=== PATIENT | male | born 1955 | race Caucasian/White ===

== ENCOUNTER 2019-06-21 09:58 | Outpatient (CLI) | payer OTHER, SELFPAY ==
--- NOTE | 2019-06-21 10:00 | US_ITS ---
WS: [id number] RENAL ULTRASOUND REASON FOR EXAM: Renal Calculus TECHNIQUE: Grayscale and Doppler ultrasound examination of the kidneys. FINDINGS: Right kidney: Right kidney measures 12.3 cm x 6.3 cm x 5.6 cm. Small stone is seen in the pelvis Left kidney: Left kidney measures 11.9 cm x 6.2 cm x 7.0 cm.. A stone is not observed on today's exam involving the lower pole Prostate measured 5.37 x 3.72 cm. The bladder is contracted and poorly visualized. US/US renal BI* [id number] IMPRESSION: Small stone is seen in the mid right kidney The kidneys stones seen in the left kidney not observed today Prostatic hyperplasia The bladder is contracted.
== END 2019-06-21 09:59 | disposition home or self-care (01) ==
LOC: RAD 10:01
PROVIDERS: Family Provider Internal Medicine; PCP Internal Medicine; Visit Provider Urology
DX: N20.0 Calculus of kidney (principal); N40.0 Benign prostatic hyperplasia without lower urinary tract symptoms
CPT/HCPCS: 76770; 81001

== ENCOUNTER 2019-12-21 08:33 | Outpatient (CLI) | payer OTHER, SELFPAY ==
--- NOTE | 2019-12-21 08:45 | US_ITS ---
WS: [id number] RENAL ULTRASOUND HISTORY: History of kidney stones. COMPARISON: 06/21/2019 TECHNIQUE: 2-D and color Doppler imaging of the kidney submitted. Right kidney: 11.2 cm x 5.2 cm x 5.4 cm. Normal echogenicity with no hydronephrosis or mass. Left kidney: 12.5 cm x 4.5 cm x 6.7 cm. Normal size and echogenicity. Cortical exophytic cyst from the mid kidney measures 7 x 7 x 8 mm. No s olid mass or obstruction. Aorta: Normal. Urinary Bladder: Normal distention. US/US renal BI* [id number] IMPRESSION: 1. Normal size kidneys with no hydronephrosis. 2. Cortical cyst interpolar LEFT kidney is subcentimeter.
--- NOTE | 2019-12-21 09:30 | XR_ITS ---
WS: [id number] EXAM: ABDOMINAL KUB DATE OF EXAMINATION: 12/21/2019, 0903 hours COMPARISON: Abdominal KUB from 03/17/2019. HISTORY: Patient is 64 years old with follow-up kidney stones. FINDINGS: Bowel gas pattern is normal. No calcifications are seen over either kidney silhouette or course of th e ureters to suggest renal or ureteral calculi. Extensive changes of arthritis are seen in the spine. Slight arthritis in the right SI joint as well. XR/XR KUB 54919 IMPRESSION: No findings of calcifications to suggest renal or ureteral calculi.
== END 2019-12-21 08:34 | disposition home or self-care (01) ==
LOC: RAD 08:33
PROVIDERS: PCP Internal Medicine; Visit Provider Urology
DX: N20.0 Calculus of kidney (principal); N28.1 Cyst of kidney, acquired
CPT/HCPCS: 74018; 76770; 81001

== ENCOUNTER 2020-08-09 14:10 | Outpatient (CLI) | payer MEDICARE, OTHER, SELFPAY ==
--- NOTE | 2020-08-09 07:30 | XR_ITS ---
WS: [id number] KUB, AP view, 08/09/2020 Clinical Data: N20.0 - Calculus of kidney Comparison: KUB, 12/21/2019. Findings: No abnormal intraabdominal masses or calcifications are seen. There is no dilatated small bowel or ev idence of obstruction. There are no abnormal calcifications in the true pelvis. XR/XR KUB [id number] Impression: Negative for renal or ureteral calculi.
== END 2020-08-09 14:11 | disposition home or self-care (01) ==
LOC: RAD 14:19
PROVIDERS: PCP Internal Medicine; Visit Provider Urology
DX: N20.0 Calculus of kidney (principal)
CPT/HCPCS: 74018; 81003

== ENCOUNTER 2021-02-13 08:17 | Outpatient (CLI) | payer MEDICARE, OTHER, SELFPAY ==
--- NOTE | 2021-02-13 08:30 | XR_ITS ---
WS: [id number] XR KUB [id number] REASON FOR EXAM: URIC ACID UROLITHIASIS FINDINGS: No intrarenal calculi, ureteral calculi, or bladder calculi are identified. The remainder of the abdomen is unremarkable. XR/XR KUB 16579 IMPRESSION: No urinary tract calculi identified.
== END 2021-02-13 08:18 | disposition home or self-care (01) ==
LOC: RAD 08:23
PROVIDERS: PCP Internal Medicine; Visit Provider Urology
DX: N20.9 Urinary calculus, unspecified (principal)
CPT/HCPCS: 74018; 81003

== ENCOUNTER 2021-09-11 08:00 | Outpatient (CLI) | payer MEDICARE, OTHER, SELFPAY ==
--- NOTE | 2021-09-11 08:18 | XR_ITS ---
WS: [id number] XR KUB [id number] REASON FOR EXAM: Uric acid urolithiasis FINDINGS: No calculi overlying the kidneys, ureters, or bladder. No other significant abnormality of the abdomen or pelvis. XR/XR KUB [id number] IMPRESSION: No urinary tract calculi identified.
--- NOTE | 2021-09-11 08:45 | US_ITS ---
WS: [id number] RENAL ULTRASOUND HISTORY: URIC ACID UROLITHIASIS COMPARISON: 07/13/2019 TECHNIQUE: 2-D and color Doppler imaging of the kidney submitted. Right kidney: 11.7 cm x 5.6 cm x 5.5 cm. Normal echogenicity with no hydronephrosis or mass. No calcifications or shadowing. Left kidney: 11.5 cm x 3.6 cm x 5.2 cm. Normal size kidney with normal echogenicity. No cortical thinning. Small exophytic cyst from the supe rior kidney measures 9 x 10 x 11 mm. Also described on the prior study with minimal increase in size. No solid mass. No shadowing or calcification. Aorta: Normal. Urinary Bladder: Normally distended bladder. There is encroachment into the base of the bladder by an enlarged prostate gland. Prostate measures 5.0 x 5.0 x 5.9 cm. US/US renal BI* [id number] IMPRESSION: 1. No hydronephrosis or calcifications identified. 2. Very small exophytic cyst upper pole LEFT kidney. No solid mass. 3. Prostate gland enlargement and heterogeneity.
== END 2021-09-11 08:01 | disposition home or self-care (01) ==
LOC: RAD 08:13
PROVIDERS: PCP Internal Medicine; Visit Provider Urology
DX: N20.0 Calculus of kidney (principal); N28.1 Cyst of kidney, acquired; N40.0 Benign prostatic hyperplasia without lower urinary tract symptoms; N20.9 Urinary calculus, unspecified; R82.992 Hyperoxaluria
CPT/HCPCS: 74018; 76770; 81003; 99213

== ENCOUNTER → 2021-09-28 10:32 | Outpatient (BNVA) | payer MEDICARE, OTHER, SELFPAY | PROVIDERS: PCP Internal Medicine; Visit Provider Urology | DX: N20.9 Urinary calculus, unspecified (principal) | CPT/HCPCS: 80048 ==

== ENCOUNTER → 2024-10-07 08:37 | Outpatient (BNVA) | payer MEDICARE, SELFPAY | PROVIDERS: PCP Nurse Practitioner Family; Visit Provider Nurse Practitioner Family | DX: R82.992 Hyperoxaluria (principal); I10 Essential (primary) hypertension; R73.9 Hyperglycemia, unspecified; H61.91 Disorder of right external ear, unspecified | CPT/HCPCS: 80053; 80061; 83036; 84443; 85025 ==

== ENCOUNTER → 2024-10-21 08:17 | Outpatient (BNVA) | payer MEDICARE, SELFPAY | PROVIDERS: PCP Nurse Practitioner Family; Visit Provider Nurse Practitioner Family | DX: I10 Essential (primary) hypertension (principal); E87.5 Hyperkalemia | CPT/HCPCS: 80048 ==

== ENCOUNTER → 2024-10-25 11:11 | Outpatient (BNVA) | payer MEDICARE, SELFPAY | PROVIDERS: PCP Nurse Practitioner Family; Visit Provider Nurse Practitioner Family | DX: M17.12 Unilateral primary osteoarthritis, left knee (principal) | CPT/HCPCS: 73562 ==

== ENCOUNTER 2024-11-10 08:03 | Outpatient (CLI) | payer MEDICARE, SELFPAY ==
--- NOTE | 2024-11-10 08:45 | MR_ITS ---
WS: [id number] MRI LEFT KNEE NONCONTRAST TECHNIQUE: Axial PD, coronal PD fat sat, coronal PD, sagittal PD, and sagittal PD fat-sat images obtained. CLINICAL INFORMATION: M25.562 - Pain in left knee FINDINGS: Advanced tricompartmental arthritis LEFT knee. This is worse in the medial joint compartment. Hypertrophic changes along the joint line. Hypertrophic patella with enthesophytes. Distal quadriceps and patella tendons are intact. ACL and PCL are intact. Small suprapatellar effusion. Grade IV chondromalacia patella with chondral fissuring and trace subchondral edema. Prepatellar soft tissue edema with a small amount of fluid. Medial and lateral patellar retinaculum appear intact. Normal popliteal fossa. Medial and lateral collateral ligaments are intact. Chronic thinning of the medial and lateral meniscus. Chronic desiccation of the medial meniscus with near [id number] articulation in the medial joint compartment. Peripheral extrusion of the residual meniscus. Normal popliteal fossa. MR/MR knee LT wo con* [id number] IMPRESSION: 1. Advanced tricompartmental arthritis worse in the medial joint compartment w ith [id number] articulation and a small amount of subchondral edema in the ti bial plateau. Hypertrophic changes about the joint line. 2. Grade IV chondromalacia patella with a small amount of subchondral edema an d chondral fissuring along the mid patella extending into the lateral patellar facet. Prepatellar soft tissue edema with a small joint effusion. 3. ACL and PCL appear intact. 4. Medial and lateral collateral ligaments are intact. 5. No acute appearing meniscal tears. Chronic desiccation and peripheral extru abi of the residual medial meniscus. 6. Calcified intra-articular loose bodies along the anterior tibial spines jus t anterior to the ACL. Outbridge grading: grade IV: full-thickness cartilage loss with underlying bone reactive changes
== END 2024-11-10 08:04 | disposition home or self-care (01) ==
LOC: RAD 08:04
PROVIDERS: PCP Nurse Practitioner Family; Visit Provider Nurse Practitioner Family
DX: M17.12 Unilateral primary osteoarthritis, left knee (principal); M22.42 Chondromalacia patellae, left knee; M23.42 Loose body in knee, left knee
CPT/HCPCS: 73721

== ENCOUNTER → 2024-11-17 13:25 | Outpatient (BNVA) | payer MEDICARE, SELFPAY | PROVIDERS: PCP Nurse Practitioner Family; Visit Provider Nurse Practitioner Family | DX: L81.4 Other melanin hyperpigmentation (principal); L57.8 Other skin changes due to chronic exposure to nonionizing radiation; X32.XXXA Exposure to sunlight, initial encounter; L57.3 Poikiloderma of Civatte; L82.0 Inflamed seborrheic keratosis; L29.89 Other pruritus; R20.9 Unspecified disturbances of skin sensation; R23.8 Other skin changes; R20.8 Other disturbances of skin sensation; L53.8 Other specified erythematous conditions; D48.5 Neoplasm of uncertain behavior of skin | CPT/HCPCS: 17110; 69100; 99203 ==

== ENCOUNTER 2025-02-07 23:54 | Emergency (ER) | payer MEDICARE, SELFPAY ==
[2025-02-07 23:54] VITALS: BP 218/103; PULSE 72; RESP 12; TEMP 36.4; O2SAT 97; BMI 35.2
--- NOTE | 2025-02-07 23:59 | CTR_ITS ---
PROCEDURE INFORMATION: Exam: CT Head Without Contrast Exam date and time: 02/07/2025 11:59 PM Age: 69 years old Clinical indication: Stroke-like symptoms; Visual disturbance; Left upper extremity and left lower extremity numbness/paresthesia; Additional info: Symptoms of acute stroke TECHNIQUE: Imaging protocol: Computed tomography of the head without contrast. Radiation optimization: All CT scans at this facility use at least one of these dose optimization techniques: automated exposure control; mA and/or kV adjustment per patient size (includes targeted exams where dose is matched to clinical indication); or iterative reconstruction. Other technique: STROKE PROTOCOL was implemented. COMPARISON: No relevant prior studies available. RADIATION DOSE METRICS: Total DLP (mGy-cm): 1419.28 FINDINGS: Brain: Query mild chronic small-vessel ischemic change. Cerebral ventricles: Mild involutional changes of the ventricles and sulci. Paranasal sinuses: Bilateral maxillary and sphenoid sinus mucosal thickening. Mastoid air cells: Visualized mastoid air cells are well aerated. Bones: Unremarkable. No acute fracture. Soft tissues: Unremarkable. CT/CT head thrombolytic [id number] IMPRESSION: No definite acute infarct ASSESSMENT: ASPECTS ([place] Stroke Program Early CT Score) is 10.
--- NOTE | 2025-02-07 23:59 | ECG_ITS ---
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 Measurements Intervals [place] Rate: 70 P: 56 NM: 233 QRS: 55 QRSD: 86 T: 38 QT: 374 QTc: 405 Interpretive Statements SINUS RHYTHM WITH FIRST DEGREE AV BLOCK Possible left atrial enlargement Compared to ECG 05/07/2018 11:35:59 No significant changes Electronically Signed On 02-08-2025 23:50:55 CDT by Kd Huynh M.D. [email or web address]
--- NOTE | 2025-02-07 23:59 | CTR_ITS ---
PROCEDURE INFORMATION: Exam: CTA Head With Contrast, Arteriography Exam date and time: 02/08/2025 12:06 AM Age: 69 years old Clinical indication: Dizziness and giddiness and headache and numbness; Additional info: L arm numbness, dizziness, headache, resolved TECHNIQUE: Imaging protocol: Computed tomographic angiography of the head with contrast. Exam focused on the arteries. 3D rendering (Not supervised by radiologist): MIP and/or 3D reconstructed images were created by the technologist. Radiation optimization: All CT scans at this facility use at least one of these dose optimization techniques: automated exposure control; mA and/or kV adjustment per patient size (includes targeted exams where dose is matched to clinical indication); or iterative reconstruction. Contrast material: OMNI 350; Contrast volume: 100 ml; Contrast route: INTRAVENOUS (IV); COMPARISON: CT head thrombolytic [id number] 02/07/2025 11:59 PM RADIATION DOSE METRICS: Total DLP (mGy-cm): 567.34 FINDINGS: ANTERIOR CIRCULATION: Right internal carotid artery: Intracranial segment is patent with no significant stenosis. No aneurysm. Right middle cerebral artery: No occlusion or significant stenosis. No aneurysm. Right anterior cerebral artery: No occlusion or significant stenosis. No aneurysm. Left internal carotid artery: Intracranial segment is patent with no significant stenosis. No aneurysm. Left middle cerebral artery: No occlusion or significant stenosis. No aneurysm. Left anterior cerebral artery: No occlusion or significant stenosis. No aneurysm. POSTERIOR CIRCULATION: Right vertebral artery: No occlusion or significant stenosis. No aneurysm. Left vertebral artery: No occlusion or significant stenosis. No aneurysm. Basilar artery: No occlusion or significant stenosis. No aneurysm. Right posterior cerebral artery: Short-segment moderate to high-grade stenosis of the mid right FIELD UNDERWRITER, though distal aspects appear to opacify symmetrically. Left posterior cerebral artery: No occlusion or significant stenosis. No aneurysm. Aorta: Aortic and carotid atherosclerosis. Brain: No definite mass, mass effect, or midline shift. Cerebral ventricles: No ventriculomegaly. Paranasal sinuses: Polypoid mucosal thickening of the left maxillary sinus. Mild right maxillary sinus thickening. Osteomas of the bilateral ethmoid air cells. Mild ethmoid sinus disease. Bones/joints: Unremarkable. No acute fracture. Soft tissues: Unremarkable. Thyroid: Several nodules within the thyroid, consider nonurgent thyroid ultrasound for further characterization. Granulomatous calcification within the right lung. PROCEDURE INFORMATION: Exam: CTA Neck With Contrast Exam date and time: 02/08/2025 12:06 AM Age: 69 years old Clinical indication: Dizziness and giddiness and headache and numbness; Additional info: L arm numbness, dizziness, headache, resolved TECHNIQUE: Imaging protocol: Computed tomographic angiography of the neck with contrast. Exam focused on the cervical segments of the vasculature. 3D rendering (Not supervised by radiologist): MIP and/or 3D reconstructed images were created by the technologist. Radiation optimization: All CT scans at this facility use at least one of these dose optimization techniques: automated exposure control; mA and/or kV adjustment per patient size (includes targeted exams where dose is matched to clinical indication); or iterative reconstruction. Contrast material: OMNI 350; Contrast volume: 100 ml; Contrast route: INTRAVENOUS (IV); COMPARISON: CT head thrombolytic [id number] 02/07/2025 11:59 PM RADIATION DOSE METRICS: Total DLP (mGy-cm): 567.34 FINDINGS: Right common carotid artery: No stenosis. No dissection or occlusion. Right internal carotid artery: No stenosis of the extracranial segment. No dissection or occlusion. Right external carotid artery: No occlusion or stenosis of the origin. Left common carotid artery: No stenosis. No dissection or occlusion. Left internal carotid artery: No stenosis of the extracranial segment. No dissection or occlusion. Left external carotid artery: No occlusion or stenosis of the origin. Right vertebral artery: No stenosis. No dissection or occlusion. Left vertebral artery: No stenosis. No dissection or occlusion. Thyroid: Several nodules within the thyroid, consider nonurgent thyroid ultrasound for further characterization. Soft tissues: Normal. No significant soft tissue swelling. Bones/joints: Incidental note of kinking/looping of both internal carotids close to the skull base, doubtful clinical significance. Moderate degenerative changes of cervical vertebrae with multilevel endplate spurring and disc space narrowing. CT/CT angio headneck* [id number] IMPRESSION: 1. Several nodules within the thyroid, consider nonurgent thyroid ultrasound for further characterization. 2. Short-segment moderate to high-grade stenosis of the mid right FIELD UNDERWRITER, though distal aspects appear to opacify symmetrically. Otherwise, no significant stenosis or occlusion. IMPRESSION: Several nodules within the thyroid, consider nonurgent thyroid ultrasound for further characterization. No definite acute stenosis or occlusion. COMMENTS: Consistent with the [employer]'s Incidental Findings Committee white paper (J Am Iris Radiol 2015): In patients aged 35 years and older with an incidental thyroid nodule equal to or greater than 1.[address], MRI or extrathyroidal US, further evaluation with dedicated thyroid US is recommended for patients with normal life expectancy and without comorbidities. For smaller nodules without suspicious features, no further evaluation or follow up is recommended. REFERENCES: NASCET CRITERIA. The degree of stenosis in the cervical segment of the internal carotid artery is based on NASCET criteria. Normal is no stenosis. Mild is less than 50% stenosis. Moderate is 50-69% stenosis. Severe is 70% to 99% stenosis. Total occlusion is no detectable patent lumen.
--- OUTSIDE RECORDS SUMMARY | 2025-02-08 00:02 | XMS_ITS | Patient Health Record ---
Author Organization [employer], [facility] Address [address] [place] [address] Care Team Providers Care Clerical Receptionist Name Role Phone Trini Dorantes Primary Care Provider BROOK Noriega Unavailable [phone] HAGERCUONG KESSLER Unavailable [phone] Allergies No Known Allergies Results Component Value Reference Range Notes Basic Metabolic Panel Reviewed date:07/29/2024 12:01:25 PM Interpretation: Performing Lab: Notes/Report: Use of this assay is not recommended for patients undergoing treatment with phenindione, due to the potential for falsely depressed results. Testing performed at: [address] [place] [address] CLIA ID [id number] Calculation performed from GFR calculator provided by the [employer]. Glomerular Filtration rate(GRF) is the best overall index of kidney function. Normal GFR varies according to age,sex, body size, and declines with age. The National [employer] recommends using the CKD-EPI Creatinine Equation(2020) to estimate GFR. Z-hobtda-n-benzoquinone imine (NAPQI) is a metabolite of acetaminophen, NAPQI concentrations of apparoximately 10 mg/L correlation to toxic levels of acetaminophen demonstrates a greater than or equil to 10% change in results. NAPQI concentrations greater than this may lead to falsely depressed results for patient samples. Testing performed at [facility], [address] [place] [address] [place] [address]. CLIA ID#: [id number] Sodium 137 136-145 MMOL/L Potassium 4.2 3.5-5.1 MMOL/L Chloride 102 98-107 MMOL/L CO2 25.8 20.0-31.0 MMOL/L Glucose Serum 183 71-110 MG/DL BUN 24 7-21 MG/DL Creat 1.26 .57-1.17 MG/DL GFR 61.8 Anion Gap 13 5-15 BUN/Creat Ratio 19.0 12.0-20.0 % Calcium 9.8 8.7-10.4 MG/DL Osmo Serum,Calculated 293 280-300 MOSM/KG CBC w/ Auto Diff Reviewed date:07/29/2024 12:01:31 PM Interpretation: Performing Lab: Notes/Report: Testing performed at: [address], [place] [address] CLIA ID [id number] WBC 7.4 4.5-11.0 X10'3 RBC 5.32 4.50-5.90 X10'6 Hgb 15.2 13.5-17.5 G/DL Hct 46.8 41.0-53.0 % MCV 88.0 80.0-100.0 FL MCH 28.6 27.0-31.0 PG MCHC 32.5 31.0-37.0 G/DL Platelet 241 150-400 X10'3 RDW-SD 43.9 35.0-49.0 FL RDW-CV 13.4 12.2-15.6 % MPV 9.3 9.2-12.0 FL Neutro Auto% 65.1 40.0-70.0 % Lymph Auto% 19.8 22.0-44.0 % Grainger Auto% 6.9 3.0-7.0 % Eos Auto% 6.6 2.0-4.0 % Baso Auto% 1.2 0.0-1.0 % Imm Gran% .4 .0-.4 % Neutro Abs 4.85 .80-7.70 Absolute Neutrophil Count 4850 Lymph Abs 1.47 .10-4.10 Grainger Abs .51 .20-1.00 Eos Abs .49 .00-.40 Baso Abs .09 .00-.20 Imm Gran Abs .03 .00-.10 NRBC# .00 .00-.20 NRBC% .00 .00-.20 /100 int act WBC's Urinalysis, Routine Reviewed date:07/29/2024 09:00:19 AM Interpretation: Performing Lab: Notes/Report: Urine-Color yellow Appearance clear Glucose - Bilirubin - Ketones - Specific [place] 1.025 Occult Blood - pH 6.0 Urine Protein 2+ Urobilinogen,Semi-Qn - Nitrite, Urine - WBC Esterase - CULTURE, URINE, ROUTINE (395 ) Reviewed date:08/02/2024 08:32:35 AM Interpretation: Performing Lab:[facility]-[id number] Ferny oswaldo, [id number] Yoly Soler MD Notes/Report: NON-FASTING CULTURE, URINE, ROUTINE SEE NOTE CULTURE, URINE, ROUTINE Micro Number: [id number] Test Status: Final Specimen Source: Not given Specimen Quality: Adequate Result: Mixed genital jermain isolated. These superficial bacteria are not indicative of a urinary tract infection. No further organism identification is warranted on this specimen. If clinically indicated, recollect clean-catch, mid-stream urine and transfer immediately to Urine Culture Transport Tube. NO COLLECTION DATE RECEIVED. WE HAVE USED THE DATE THE SPECIMEN WAS RECEIVED BY THIS LABORATORY THE COLLECTION DATE. IF THIS IS INCORRECT, PLEASE CONTACT CLIENT SERVICES. PHONE NUMBER: [phone] Rectal Swab Resistance Panel PCR Reviewed date:07/30/2024 12:19:18 PM Interpretation: Performing Lab: Notes/Report: Urinalysis, Routine Reviewed date:05/24/2024 01:28:53 PM Interpretation: Performing Lab: Notes/Report: Urine-Color yellow Appearance clear Glucose - Bilirubin - Ketones - Specific [place] 1.015 Occult Blood - pH 6.0 Urine Protein 2+ Urobilinogen,Semi-Qn - Nitrite, Urine - WBC Esterase - MRI Pelvis w/ + w/o Cont--72 197 Reviewed date:06/14/2024 10:41:49 AM Interpretation: Performing Lab: Notes/Report: See Below For Report MRI Pelvis w/ + w/o Cont Read See Below For Report Reason For Referral No Information Medications Medication SIG (Take, Route, Frequency, Duration) Notes Start Date End Date Status diazePAM 5 MG 1 tablet as needed Orally one hour prior to MRI; Duration: 1 days MUST HAVE [employer]ARM [employer]YER to drive home from exam 06/01/2024 Not-Taking Losartan Potassium 100 MG 1 tablet Orall y Once a day Active Multivitamin Active Symbicort 160-4.5 MCG/ACT as directed Inhalation Active Aspirin Adult Low Dose 81 MG 1 tablet Orally Once a day Active Sertraline HCl 25 MG 1 tablet Orally Onc e a day Active Potassium Citrate ER 15 MEQ (1620 MG) 1 tablet with meals Orally Twice a day Active Ezetimibe 10 MG 1 tablet Orally Once a day Active Social History Tobacco Use: Social History Observation Description Date Details (start date - stop date) Never Smoker NA - NA Tobacco Control (Standard) Question Answer Notes Tobacco use: Nonsmoker AUDIT-C (Standard) Question Answer Notes Did you have a drink containing alcohol in the p ast year? No Points 0 Interpretation Negative Section Notes: Denies any tobacco or alcoho l use. Denies any tobacco or alcoho l use. Denies any tobacco or alcoho l use. Denies any tobacco or alcoho l use. Denies any tobacco or alcoho l use. Problems Problem Type SNOMED Code ICD Code Onset Dates Problem Status W/U Status Risk Notes Problem Nephrolithiasis (18723843) Nephrolithiasis (N20.0) Active confirmed Problem History of psychiatric disorder (372400082) History of claustrophobia (Z86.59) Active confirmed Problem Recurrent nephrolithiasis (3579568661314631) Recurrent nephrolithiasis (N20.0) Active confirmed Vital Signs Heart Rate 77 /min 10/27/2024 Height-cm 182.88 cm 10/27/2024 Blood pressure diastolic 97 mm Hg 10/27/2024 Weight-kg 122.47 kg 10/27/2024 Height 72 in 10/27/2024 Blood pressure systolic 155 mm Hg 10/27/2024 Weight 270 lbs 10/27/2024 BMI 36.61 kg/m2 10/27/2024 Procedures Procedure Date Ordered Date Performed Result Body Sit e Bladder Scan 05/24/2024 05/24/2024 PVR 0ml Encounters Encounter Location Date Provider Diagnosis [employer], [employer] [address] [place] [address] 05/24/2024 BROOK MEJÍA Elevated PSA R97.20 and Recurrent nephrolithiasis N20.0 [employer], [facility] [address] [place] [address] 06/15/2024 BROOK MEJÍA Elevated PSA R97.20 and Abnormal MRI, pelvis R93.5 [employer] [facility] [address] [facility] [address] [place] [address] 07/29/2024 BROOK MEJÍA Encounter for preoperative assessment Z01.818 ; Elevated PSA R97.20 ; Abnormal MRI, pelvis R93.5 and 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 [facility], [facility] [address] [place] [address] 08/03/2024 CUONG HAGER [facility], [facility] [address] [place] [address] 08/24/2024 CUONG HAGER Elevated PSA R97.20 ; Abnormal MRI, pelvis R93.5 and 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 [facility], [facility] [address] [place] [address] 10/27/2024 CUONG HAGER Elevated PSA R97.20 ; Abnormal MRI, pelvis R93.5 ; 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 and Nephrolithiasis N20.0 [facility], [facility] [address] [place] [address] 05/13/2024 CUONG HAGER [facility], [facility] [address] [place] [address] 05/31/2024 BROOK MEJÍA Elevated PSA R97.20 and History of claustrophobia Z86.59 [facility], [facility] [address] [place] [address] 07/01/2024 BROOK VERGARAS [facility], [facility] [address] [place] [address] 07/19/2024 BROOKSABI VALENCIAKYM Recurrent nephrolithiasis N20.0 and Preoperative clearance Z01.818 Assessments Encounter Date Diagnosis (ICD Code) Assessment Notes Treatment Notes Treatment Clinical Notes Section Notes 10/27/2024 Abnormal MRI, pelvis (ICD-10 - R93.5) He now has a confirm MDX that did not show any DNA methylation making the likelihood of finding significant cancer and a repeat biopsy low and repeat biopsy not indicated. He also has a history of nephrolithiasi s but no recent flank pain or hematuria. His twice daily potassium citrate has been cut down by PCP because of elevated potassium. He will continue aggressive hydration and return in 6 months with a KUB and repeat PSA. We will need to continue to manage, evaluate, and re-assess treatment plan to meet therapy goals of this patient's multiple urologic concerns. 10/27/2024 Elevated PSA (ICD-10 - R97.20) He now has a confirm MDX that did not show any DNA methylation making the likelihood of finding significant cancer and a repeat biopsy low and repeat biopsy not indicated. He also has a history of nephrolithiasi s but no recent flank pain or hematuria. His twice daily potassium citrate has been cut down by PCP because of elevated potassium. He will continue aggressive hydration and return in 6 months with a KUB and repeat PSA. We will need to continue to manage, evaluate, and re-assess treatment plan to meet therapy goals of this patient's multiple urologic concerns. 08/24/2024 Abnormal MRI, pelvis (ICD-10 - R93.5) He has recovered nicely from his biopsy without hematuria or LUTS. He had essentially 90 g prostate on ultrasound and MRI sizing and currently denies significant LUTS. He had 2 areas of atypia and I have recommended confirm MDX for this and return in 2 months to review. He is relieved that there is no definitive evidence of malignancy but understands the need for continued surveillance and possible 5 JULIET therapy in the future for the size of his prostate. 08/24/2024 Elevated PSA (ICD-10 - R97.20) Underwent MRI fusion biopsy on 08/03/24 Normal MILA; 95/88g prostate. Pathology resulting in 2 ANH cores Will obtain confirm MDX. He will return in 2m to review confirm MDX report He has recovered nicely from his biopsy without hematuria or LUTS. He had essentially 90 g prostate on ultrasound and MRI sizing and currently denies significant LUTS. He had 2 areas of atypia and I have recommended confirm MDX for this and return in 2 months to review. He is relieved that there is no definitive evidence of malignancy but understands the need for continued surveillance and possible 5 JULIET therapy in the future for the size of his prostate. 07/19/2024 Recurrent nephrolithiasis (ICD-10 - N20.0) 06/15/2024 Abnormal MRI, pelvis (ICD-10 - R93.5) ab 06/15/2024 Elevated PSA (ICD-10 - R97.20) Pt with elevated PSA and equivocal MRI of the prostate with PIRADS 3 lesion. He understands equivocal findings. We discussed options for biopsy versus 4K score for further risk stratification. He understands possibility of missing malignancy if biopsy is not performed. He would like 4K score and will make biopsy decision based on results. Will call when received. ab 05/31/2024 History of claustrophobia (ICD-10 - Z86.59) 05/31/2024 Elevated PSA (ICD-10 - R97.20) 05/24/2024 Recurrent nephrolithiasis (ICD-10 - N20.0) Pt with h/o recurrent uric acid stones on prevention regimen from Dr. Crawford. He is asymptomatic. He has not had any surveillance imaging in a while. We will address after elevated PSA work up. 05/24/2024 Elevated PSA (ICD-10 - R97.20) Pt with elevated PSA of 5.5 in 2021 that is now up to 9.56. We discussed the controversies surrounding PSA screening as well as the implications of an elevated PSA and indications for a an MRI of the prostate to evaluate for any suspicous lesions and possible need for transrectal ultrasound-guided biopsy of the prostate. He understands the possibility of missing a malignancy if a MRI/ biopsy of the prostate is not performed. He is agreeable. We will obtain an MRI of the prostate and he will f/u after for review. 07/29/2024 Encounter for preoperative assessment (ICD-10 - Z01.818) 07/29/2024 Elevated PSA (ICD-10 - R97.20) Pt with elevated PSA and equivocal MRI of the prostate with PIRADS 3 lesion but very elevated 4K score of 95. Recommended proceeding with MRI fusion biopsy. Patient scheduled for biopsy on 08/03/24 at [facility] with Dr. Hgaer. How the procedure was performed was discussed along with risks/benefits/al ternatives and postprocedural expectations. Denies problems with anesthesia in the past, no new medications or diagnoses since last visit. He has been insructed to hold ASA starting today. Patient has presurgical testing today at [place]. Urine sent for culture as well we rectal PCR and we will treat as indicated preoperatively. All questions that were asked were answered and elects to proceed with procedure as scheduled. Patient will RTC postoperatively and is satisfied with plan of care. 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 He also has a history of nephrolithiasi s but no recent flank pain or hematuria. His twice daily potassium citrate has been cut down by PCP because of elevated potassium. He will continue aggressive hydration and return in 6 months with a KUB and repeat PSA. We will need to continue to manage, evaluate, and re-assess treatment plan to meet therapy goals of this patient's multiple urologic concerns. 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 He had essentially 90 g prostate on ultrasound and MRI sizing and currently denies significant LUTS. He had 2 areas of atypia and I have recommended confirm MDX for this and return in 2 months to review. He is relieved that there is no definitive evidence of malignancy but understands the need for continued surveillance and possible 5 JULIET therapy in the future for the size of his prostate. 10/27/2024 Nephrolithiasis (ICD-10 - N20.0) He now has a confirm MDX that did not show any DNA methylation making the likelihood of finding significant cancer and a repeat biopsy low and repeat biopsy not indicated. He also has a history of nephrolithiasi s but no recent flank pain or hematuria. His twice daily potassium citrate has been cut down by PCP because of elevated potassium. He will continue aggressive hydration and return in 6 months with a KUB and repeat PSA. We will need to continue to manage, evaluate, and re-assess treatment plan to meet therapy goals of this patient's multiple urologic concerns. 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 Hager. I, Dr. Cuong Hager, personally performed the services prescribed in this documentation, as scribed by Ada Herrera, in my presence, and it is both accurate and complete. He has recovered nicely from his biopsy without hematuria or LUTS. He had essentially 90 g prostate on ultrasound and MRI sizing and currently denies significant LUTS. He had 2 areas of atypia and I have recommended confirm MDX for this and return in 2 months to review. He is relieved that there is no definitive evidence of malignancy but understands the need for continued surveillance and possible 5 JULIET therapy in the future for the size of his prostate. Plan Of Treatment Pending Test Test Name Order Date MRI : Pelvis with and without Contrast 7 219605/24/2024 Basic Metabolic Panel 07/19/2024 Blood Urea Nitrogen (BUN) 05/24/2024 CBC w/ Auto Diff 07/19/2024 Creatinine Serum 05/24/2024 Culture Urine Reflex 07/19/2024 Electrocardiogram, 12 Lead Tracing-[id number] 07/19/2024 Next Appt Details Provider Name:CUONG Mckenna, 04/26/2025 11:00:00 AM, [address] [place], [address], Insurance Providers Payer Name Payer Address Payer Phone Subscriber Number Group Number Insured Name Patient Relationship to Insured Coverage Start Date Coverage End Date [place] [address] LINCOLN GUERRERO [id number] Asad Gore Self - patient is the insured Medical (General) History Medical History History ICD Code Elevated PSA anxiety high cholesterol high blood pressure Surgical History Surgery Date(Month/Year) ESWL tonsillectomy
--- OUTSIDE RECORDS SUMMARY | 2025-02-08 00:02 | XMS_ITS | Data Portability ---
Author Organization [facility] Dayana Corrales [facility] Address [address] [address] Assessment No assessment recorded. Plan of Treatment Reminders Order Date Submit Date Provider Last Modified By Organization Details Last Modified Time Details Appointments None recorded. Lab PSA, serum or plasma 2023 024 [facility], [address] , [address], [place], [address], 4 05:13:16 CMP, serum or plasma 2023 024 [facility], [address] [facility], [facility] 1, [place], [address], 4 13:34:32 lipid panel, blood 2023 024 [facility], [address] [facility], [facility] 1, [place], [address], 4 13:34:30 CBC 2023 024 [facility], [address] [facility], [facility] 1, [place], [address], 4 13:03:06 hemoglobin A1C/hemoglo bin total, QN, blood 2023 024 [facility], [address] [facility], [facility] 1, [place], [address], 4 13:55:17 thyrotropin , QN, serum or plasma 2023 024 [facility], [address], [address], [place], [address], 4 13:28:33 HbA1c (hemoglobin A1c), blood 2023 024 [facility] ([facility]), [address] [place], [address], 4 10:49:13 BMP, serum or plasma 2023 024 [facility], [address], [address], [place], [address], 4 11:24:49 HbA1c (hemoglobin A1c), blood 2022 023 [facility] ([facility]), [address] [place], [address], 3 11:19:51 CMP, serum or plasma 2022 023 [facility], [address], [address], [place], [address], 3 06:43:14 lipid panel, blood 2022 023 [facility], [address], [address], [place], [address], 3 10:58:21 CBC 2022 023 [facility], [address], [address], [place], [address], 3 08:41:02 PSA, serum or plasma 2022 023 [email or web address] [facility], [address] [facility], [facility] [address], [address], 3 12:34:32 HbA1c (hemoglobin A1c), blood 2022 023 [facility], [address] [place] [address] [address], [address], [place], [address], 3 08:32:05 CMP, serum or plasma 2022 023 [facility], [address] [place] [address], [address], [place], [address], 3 08:32:05 TSH, serum or plasma 2022 023 [facility] ([facility]), [address] [place], [address], 3 11:30:54 lipid panel, blood 2022 023 [facility], [address] [place] [address], [address], [place], [address], 3 05:01:56 CBC 2022 023 [facility] ([facility]), [address] [place], [address], 3 10:47:05 Referral orthopedic surgeon referral 2023 024 kala Montano MD, [address] [place] [address], [address], 5 09:38:16 Procedures None recorded. Surgeries None recorded. Imaging None recorded. Medication Orders None recorded. Patient TargetsNo targets recorded. Patient Instructions Encounter Date Encounter Id Patient Instructions Last Modified By Organization Details Last Modified Time 10/07/2022 [id number] bp controlled; headed to [place] soon for shooting [email or web address] Not available 10/07/2022 10:19:23 04/07/2023 [id number] doing well excep t tooth; waiting on appt for dentist labs today a1c better last time Not available 04/07/2023 09:48:17 10/08/2023 [id number] weight down, a1c improved, but not at goal he can continue to improve diet about to leave for [place] [email or web address] Not available 10/08/2023 09:42:23 04/26/2024 [id number] labs today left shoulder been bothering him for 8 months; wishes to see Dr. montano unsure who he will switch to [email or web address] Not available 04/26/2024 12:39:01 Reason for Referral Orthopedic Surgeon Referral for Pain of left shoulder joint Referring Physician: Bebo Sharma, Internal Medicine, Encounter Date: 04/26/2024 Results Created Date Observation Date Name Description Value Unit Range Abnormal Flag Note LastModifiedBy Organization Detail LastModifiedTime 10/08/1910/08/2022 LIPID PANEL , STAND NICANOR cholesterol, total 179 mg/dL <200 normal Not Available [facility] [address] [address] [place], [address], 10/08/2022 08:32:04 10/08/1910/08/2022 LIPID PANEL , STAND NICANOR HDL cholesterol 53 mg/dL > or = 40 normal Not Available [facility] [address] [place], [address], 10/08/2022 08:32:04 10/08/1910/08/2022 LIPID PANEL , STAND NICANOR triglyceride s 101 mg/dL <150 normal Not Available [facility] [address] [place], [address], 10/08/2022 08:32:04 10/08/1910/08/2022 LIPID PANEL , STAND NICANOR LDL-choleste rol 107 mg/dL _(rashawn c) high Refer ence range : <100 Kiel able range <100 mg/dL for prima ry preve ntion ; <70 mg/dL for patie nts with CHD or diabe tic patie nts with > or = 2 CHD risk facto rs. LDL-C is now calcu lated using the Candy n-[facility] kins mary sue, which is a valid ated novel metho aleksey seymouri favian caro r accur acy than the Fried bart equat ion in the estim ation of LDL-C . Candy sue SS et al. BRDA. 2013; 310(1 9): 2061- 2068 (http ://ed ucati on.Qu estDi Callida Energys. com/f aq/FA Q164) Not Available [facility] [address] [address] [place], [address], 10/08/2022 08:32:04 10/08/19 23 10/08/2022 LIPID PANEL , STAND NICANOR chol/HDLC ratio 3.4 (calc ) <5.0 normal Not Available [facility] [address] [address] [place], [address], 10/08/2022 08:32:04 10/08/19 23 10/08/2022 LIPID PANEL , STAND NICANOR non HDL cholesterol 126 mg/dL _(rashawn c) <130 normal For patie nts with diabe leena plus 1 major ASCVD risk facto r, treat ing to a non-H DL-C goal of <100 mg/dL (LDL- C of <70 mg/dL ) is consi dered a thera peisa c optio n. Not Available [facility] [address] [address] , [place], [address], 10/08/2022 08:32:04 10/08/19 23 10/08/2022 COMPR EHENS YINA METAB OLIC PANEL glucose 156 mg/dL 65-99 high Fasti ng refer ence inter juan For someo ne witho ut known diabe leena, a gluco se value >125 mg/dL indic ates that they may have diabe leena and this shoul d be confi rmed with a follo w-up test. Not Available [facility] [address] [address] [place], [address], 10/08/2022 08:32:05 10/08/19 23 10/08/2022 COMPR EHENS YINA METAB OLIC PANEL urea nitrogen (BUN) 27 mg/dL 7-25 high Not Available [address], [address], 10/08/2022 08:32:05 10/08/19 23 10/08/2022 COMPR EHENS YINA METAB OLIC PANEL creatinine 1.38 mg/dL 0.70-1 .35 high Not Available [address], [address], 10/08/2022 08:32:05 10/08/19 23 10/08/2022 COMPR EHENS YINA METAB OLIC PANEL eGFR 56 mL/mi n/1.7 3m2 > or = 60 low The eGFR is based on the CKD-E PI 2020 equat ion. To calcu late the new eGFR from a previ ous Creat inine or Cysta tin C resul t, go to https ://sofia bethea.priyanka vasquez.o ayo/avis coughlin s/ kdoqi /gfr% 5Fcal culat or Not Available [address], [address], 10/08/2022 08:32:05 10/08/19 23 10/08/2022 COMPR EHENS YIAN METAB OLIC PANEL BUN/creatini ne ratio 20 (calc ) 6-22 normal Not Available [address], [address], 10/08/2022 08:32:05 10/08/19 23 10/08/2022 COMPR EHENS YINA METAB OLIC PANEL sodium 141 mmol/ L 135-14 6 normal Not Available [address], [address], 10/08/2022 08:32:05 10/08/19 23 10/08/2022 COMPR EHENS YINA METAB OLIC PANEL potassium 4.7 mmol/ L 3.5-5. 3 normal Not Available [address], [address], 10/08/2022 08:32:05 10/08/19 23 10/08/2022 COMPR EHENS YINA METAB OLIC PANEL chloride 107 mmol/ L 98-110 normal Not Available [address], [address], 10/08/2022 08:32:05 10/08/19 23 10/08/2022 COMPR EHENS YINA METAB OLIC PANEL carbon dioxide 26 mmol/ L 20-32 normal Not Available [address], [address], 10/08/2022 08:32:05 10/08/19 23 10/08/2022 COMPR EHENS YINA METAB OLIC PANEL calcium 9.2 mg/dL 8.6-10 .3 normal Not Available [address], [address], 10/08/2022 08:32:05 10/08/19 23 10/08/2022 COMPR EHENS YINA METAB OLIC PANEL protein, total 7.2 g/dL 6.1-8. 1 normal Not Available [address], [address], 10/08/2022 08:32:05 10/08/19 23 10/08/2022 COMPR EHENS YINA METAB OLIC PANEL albumin 4.4 g/dL 3.6-5. 1 normal Not Available [address], [address], 10/08/2022 08:32:05 10/08/19 23 10/08/2022 COMPR EHENS YINA METAB OLIC PANEL globulin 2.8 g/dL_ (calc ) 1.9-3. 7 normal Not Available [address], [address], 10/08/2022 08:32:05 10/08/19 23 10/08/2022 COMPR EHENS YINA METAB OLIC PANEL albumin/glob ulin ratio 1.6 (calc ) 1.0-2. 5 normal Not Available [address], [address], 10/08/2022 08:32:05 10/08/19 23 10/08/2022 COMPR EHENS YINA METAB OLIC PANEL bilirubin, total 0.3 mg/dL 0.2-1. 2 normal Not Available [address], [address], 10/08/2022 08:32:05 10/08/19 23 10/08/2022 COMPR EHENS YINA METAB OLIC PANEL alkaline phosphatase 109 U/L 35-144 normal Not Available [address], [address], 10/08/2022 08:32:05 10/08/19 23 10/08/2022 COMPR EHENS YINA METAB OLIC PANEL AST 17 U/L 10-35 normal Not Available [address], [address], 10/08/2022 08:32:05 10/08/19 23 10/08/2022 COMPR EHENS YINA METAB OLIC PANEL ALT 19 U/L 9-46 normal Not Available [address], [address], 10/08/2022 08:32:05 10/08/19 23 10/08/2022 HEMOG LOBIN A1C hemoglobin A1C 6.1 %_of_ total _HGB <5.7 high For brianna avery witho ut known diabe leena, a hemog lobin A1c value betwe en 5.7% and 6.4% is consi stent with predi abete s and shoul d be confi rmed with a follo w-up test. For someo ne with known diabe leena, a value <7% indic ates that their diabe leena is well contr olled . A1c targe ts shoul d be indiv idual ized based on durat ion of diabe leena, age, comor bid condi tions , and other consi derat ions. This assay resul t is consi stent with an incre ased risk of diabe leena. Curre ntly, no conse nsus exist s regar favian use of hemog lobin A1c for diagn osis of diabe leena for child percy. Not Available [facility] [address] [place], [address], 10/08/2022 08:32:05 10/08/1910/07/2022 TSH, serum or plasm a TSH 1.56 uIU/m L 0.49-3 .82 Not Available [facility] ([facility]) [address] [place] [address], [address], 10/07/2022 10:13:34 10/08/1910/07/2022 CBC WBC 6.49 X10^3 /uL 4.0-10 .5 Not Available [facility] ([facility]) [address] [place] [address], [address], 10/07/2022 10:13:40 10/08/1910/07/2022 CBC RBC 5.25 X10^6 /uL 3.50-5 .50 Not Available [facility] ([facility]) [address] [place] [address], [address], 10/07/2022 10:13:40 10/08/1910/07/2022 CBC HGB 15.95 g/dL 12.0-1 6.0 Not Available [facility] ([facility]) [address] [place] [address], [address], 10/07/2022 10:13:40 10/08/1910/07/2022 CBC HCT 46.4 % 37.0-4 7.0 Not Available [facility] ([facility]) [address] [place], [address], 10/07/2022 10:13:40 10/08/1910/07/2022 CBC MCV 88.3 fL 80.0-9 9.0 Not Available [facility] ([facility]) [address] [place], [address], 10/07/2022 10:13:40 10/08/1910/07/2022 CBC MCH 30.4 pg 27.0-3 2.0 Not Available [facility] ([facility]) [address] [place], [address], 10/07/2022 10:13:40 10/08/19 23 10/07/2022 CBC MCHC 34.4 g/dL 32.0-3 6.0 Not Available [facility] ([facility]) [address] [place], [address], 10/07/2022 10:13:40 10/08/1910/07/2022 CBC RDW 14.2 % 11.5-1 4.6 Not Available [facility] ([facility]) [address] [place], [address], 10/07/2022 10:13:40 10/08/1910/07/2022 CBC plt 189.9 10^3/ uL 140.0- 451.0 Not Available [facility] ([facility]) [address] [place], [address], 10/07/2022 10:13:40 10/08/1910/07/2022 CBC lymphocytes % 28.29 % 20.0-5 0.0 Not Available [facility] ([facility]) [address] [place], [address], 10/07/2022 10:13:40 10/08/1910/07/2022 CBC granulocytes % 60.21 % 30.0-7 0.0 Not Available [facility] ([facility]) [address] [place], [address], 10/07/2022 10:13:40 10/08/19 23 10/07/2022 CBC monocytes % 7.91 % 2.0-10 .0 Not Available [facility] ([facility]) [address] [place], [address], 10/07/2022 10:13:40 10/08/19 23 10/07/2022 CBC granulocytes # 3.91 X10^3 /uL Not Available [facility]) [address] [place], [address], 10/07/2022 10:13:40 10/08/19 23 10/07/2022 CBC lymphocytes # 1.84 X10^3 /uL Not Available [facility]) [address] [place], [address], 10/07/2022 10:13:40 10/08/19 23 10/07/2022 CBC monocytes # 0.51 X10^3 /uL Not Available [facility] ([facility]) [address] [place], [address], 10/07/2022 10:13:40 04/09/20 23 04/09/2023 CBC WBC 5.9 x10 4.5-10 .5 Not Available [facility] [address] [facility], [place], [address], 04/09/2023 08:41:02 04/09/20 23 04/09/2023 CBC RBC 5.55 x10 4.30-5 .90 Not Available [facility] [address] [facility], [place], [address], 04/09/2023 08:41:02 04/09/20 23 04/09/2023 CBC HGB 16.2 g/dL 13.5-1 8.0 Not Available [facility] [address] Reyn[address] [facility] 1, [place], [address], 04/09/2023 08:41:02 04/09/20 23 04/09/2023 CBC HCT 48.0 % 35.0-6 0.0 Not Available [facility] [address], [place], [address], 04/09/2023 08:41:02 04/09/2004/09/2023 CBC MCV 86.4 fL 80.0-9 9.9 Not Available [facility] [address] [facility] 1, [place], [address], 04/09/2023 08:41:02 04/09/20 23 04/09/2023 CBC MCH 29.3 pg 27.0-3 2.0 Not Available [facility] [address] [facility] 1, [place], [address], 04/09/2023 08:41:02 04/09/20 23 04/09/2023 CBC MCHC 33.8 g/dL 32.0-3 6.0 Not Available [facility] [address] [facility] 1, [place], [address], 04/09/2023 08:41:02 04/09/20 23 04/09/2023 CBC RDW 14.2 % 11.5-1 4.5 Not Available [facility] [address] [facility] 1, [place], [address], 04/09/2023 08:41:02 04/09/20 23 04/09/2023 CBC plt 206.0 x10 150.0- 451.0 Not Available [facility] [address] [facility] 1, [place], [address], 04/09/2023 08:41:02 04/09/20 23 04/09/2023 CBC lymphocytes % 26.1 % 20.0-5 0.0 Not Available [facility] [address] [facility] 1, [place], [address], 04/09/2023 08:41:02 04/09/20 23 04/09/2023 CBC granulcytes % 57.5 % 30.0-7 0.0 Not Available [facility] [address] [facility] 1, [place], [address], 04/09/2023 08:41:02 04/09/20 23 04/09/2023 CBC monocytes % 11.2 % 2.0-10 .0 high Not Available [facility] [address] [facility], [place], [address], 04/09/2023 08:41:02 04/09/20 23 04/09/2023 CBC granulcytes# 3.4 x10 Not Jacque ilable [facility] [address] [facility] 1, [place], [address], 04/09/2023 08:41:02 04/09/20 23 04/09/2023 CBC lymphocytes # 1.5 x10 Not Available [facility] [address] [facility], [place], [address], 04/09/2023 08:41:02 04/09/20 23 04/09/2023 CBC monocytes # 0.7 x10 Not Avai lable [facility] [address] [facility] 1, [place], [address], 04/09/2023 08:41:02 04/09/20 23 04/09/2023 LIPID PROFI LE (MALE ) cholesterol 182.0 mg/dL 0.0-20 0.0 Not Available [facility] [address] [facility] 1, [place], [address], 04/09/2023 10:58:20 04/09/20 23 04/09/2023 LIPID PROFI LE (MALE ) trig 90.0 mg/dL Not Available [facility] [address] [facility] 1, [place], [address], 04/09/2023 10:58:20 04/09/20 23 04/09/2023 LIPID PROFI LE (MALE ) HDL - direct 47.0 mg/dL Not Available [facility] [address] [facility] 1, [place], [address], 04/09/2023 10:58:20 04/09/20 23 04/09/2023 LIPID PROFI LE (MALE ) VLDL - direct 18.0 mg/dL Not Available [facility] [address] [facility] 1, [place], [address], 04/09/2023 10:58:20 04/09/20 23 04/09/2023 LIPID PROFI LE (MALE ) LDL - direct 117.0 mg/dL 0.0-13 0.0 Not Available [facility] [address] [facility] 1, [place], [address], 04/09/2023 10:58:20 04/09/20 23 04/10/2023 COMPR EHENS YINA METAB OLIC PANEL glucose 111 mg/dL 65-99 high Fasti ng refer ence inter juan For someo ne witho ut known diabe leena, a gluco se value betwe en 100 and 125 mg/dL is consi stent with predi abete s and shoul d be confi rmed with a follo w-up test. Not Available [facility] [address], [place], [address], 04/10/2023 06:43:14 04/09/20 23 04/10/2023 COMPR EHENS YINA METAB OLIC PANEL urea nitrogen (BUN) 21 mg/dL 7-25 normal Not Available [address], [address], 04/10/2023 06:43:14 04/09/20 23 04/10/2023 COMPR EHENS YINA METAB OLIC PANEL creatinine 1.44 mg/dL 0.70-1 .35 high Not Available [address], [address], 04/10/2023 06:43:14 04/09/20 23 04/10/2023 COMPR EHENS YINA METAB OLIC PANEL eGFR 53 mL/mi n/1.7 3m2 > or = 60 low Not Available [address], [address], 04/10/2023 06:43:14 04/09/20 23 04/10/2023 COMPR EHENS YINA METAB OLIC PANEL BUN/creatini ne ratio 15 (calc ) 6-22 normal Not Available [address], [address], 04/10/2023 06:43:14 04/09/20 23 04/10/2023 COMPR EHENS YINA METAB OLIC PANEL sodium 139 mmol/ L 135-14 6 normal Not Available [address], [address], 04/10/2023 06:43:14 04/09/20 23 04/10/2023 COMPR EHENS YINA METAB OLIC PANEL potassium 4.7 mmol/ L 3.5-5. 3 normal Not Available [address], [address], 04/10/2023 06:43:14 04/09/20 23 04/10/2023 COMPR EHENS YINA METAB OLIC PANEL chloride 104 mmol/ L 98-110 normal Not Available [address], [address], 04/10/2023 06:43:14 04/09/20 23 04/10/2023 COMPR EHENS YINA METAB OLIC PANEL carbon dioxide 27 mmol/ L 20-32 normal Not Available [address], [address], 04/10/2023 06:43:14 04/09/20 23 04/10/2023 COMPR EHENS YINA METAB OLIC PANEL calcium 9.2 mg/dL 8.6-10 .3 normal Not Available [address], [address], 04/10/2023 06:43:14 04/09/20 23 04/10/2023 COMPR EHENS YINA METAB OLIC PANEL protein, total 7.1 g/dL 6.1-8. 1 normal Not Available [address], [address], 04/10/2023 06:43:14 04/09/20 23 04/10/2023 COMPR EHENS YINA METAB OLIC PANEL albumin 4.3 g/dL 3.6-5. 1 normal Not Available [address], [address], 04/10/2023 06:43:14 04/09/20 23 04/10/2023 COMPR EHENS YINA METAB OLIC PANEL globulin 2.8 g/dL_ (calc ) 1.9-3. 7 normal Not Available [address], [address], 04/10/2023 06:43:14 04/09/20 23 04/10/2023 COMPR EHENS YINA METAB OLIC PANEL albumin/glob ulin ratio 1.5 (calc ) 1.0-2. 5 normal Not Available [address], [address], 04/10/2023 06:43:14 04/09/20 23 04/10/2023 COMPR EHENS YINA METAB OLIC PANEL bilirubin, total 0.4 mg/dL 0.2-1. 2 normal Not Available [address], [address], 04/10/2023 06:43:14 04/09/20 23 04/10/2023 COMPR EHENS YINA METAB OLIC PANEL alkaline phosphatase 101 U/L 35-144 normal Not Available [facility] [address] [address] [place], [address], 04/10/2023 06:43:14 04/09/20 23 04/10/2023 COMPR EHENS YINA METAB OLIC PANEL AST 18 U/L 10-35 normal Not Available [address] [address] [place], [address], 04/10/2023 06:43:14 04/09/20 23 04/10/2023 COMPR EHENS YINA METAB OLIC PANEL ALT 18 U/L 9-46 normal Not Available [address] [address] [place], [address], 04/10/2023 06:43:14 04/09/20 23 04/09/2023 HbA1c (hemo globi n A1c), blood HbA1c 6.6 Not Available [facility] ([facility]) [address] [place] [address], [address], 04/07/2023 09:44:55 10/06/19 24 10/06/2023 BMP (MALE ) glucose 103.0 mg/dL 60.0-9 9.0 high Not Available [address], [address], 10/06/2023 11:24:49 10/06/19 24 10/06/2023 BMP (MALE ) BUN (blood urea nitrogen) 22.0 mg/dL 10.0-2 6.0 Not Available [facility] [address] [place], [address], 10/06/2023 11:24:49 10/06/19 24 10/06/2023 BMP (MALE ) creatinine (serum) 1.3 mg/dL 0.4-1. 5 Not Available [facility] [address] [facility] 1, [place], [address], 10/06/2023 11:24:49 10/06/19 24 10/06/2023 BMP (MALE ) BUN/creatini ne ratio 16.54 ratio Not Available [facility] [address] [facility] [address] [address], [place], [address], 10/06/2023 11:24:49 10/06/19 24 10/06/2023 BMP (MALE ) calcium 8.9 mg/dL 8.4-10 .5 Not Available [facility] [address] [facility] [address] [address], [place], [address], 10/06/2023 11:24:49 10/06/19 24 10/06/2023 BMP (MALE ) sodium 139.0 mmol/ L 136.0- 145.0 Not Available [facility] [address] [facility], [place], [address], 10/06/2023 11:24:49 10/06/19 24 10/06/2023 BMP (MALE ) potassium 4.0 mmol/ L 3.5-5. 1 Not Available [facility] [address] [facility], [place], [address], 10/06/2023 11:24:49 10/06/19 24 10/06/2023 BMP (MALE ) chloride 107.0 mmol/ L 98.0-1 10.0 normal Not Available [facility] [address] [facility], [place], [address], 10/06/2023 11:24:49 10/06/19 24 10/06/2023 BMP (MALE ) C02 26.0 mmol/ L 22.0-3 1.0 Not Available [facility] [address] [facility] [facility] 1, [place], [address], 10/06/2023 11:24:49 10/06/19 24 10/06/2023 HbA1c (hemo globi n A1c), blood HbA1c 6.3 Not Available [facility] ([facility]) [address] [place], [address], 10/06/2023 09:19:22 04/26/20 24 04/26/2024 CBC WBC 7.4 x10 4.5-10 .5 Not Available [facility] [address] [facility] [address] [facility] 1, [place], [address], 04/26/2024 13:03:06 04/26/20 24 04/26/2024 CBC RBC 5.43 x10 4.30-5 .90 Not Available [facility] [address] [facility] [address] [facility] [address], [place], [address], 04/26/2024 13:03:06 04/26/20 24 04/26/2024 CBC HGB 16.1 g/dL 13.5-1 8.0 Not Available [facility] [address] [facility], [place], [address], 04/26/2024 13:03:06 04/26/20 24 04/26/2024 CBC HCT 46.8 % 35.0-6 0.0 Not Available [facility] [address] [facility] [address] [facility] [address], [place], [address], 04/26/2024 13:03:06 04/26/20 24 04/26/2024 CBC MCV 86.2 fL 80.0-9 9.9 Not Available [facility] [address] [facility] [address] [facility] [address], [place], [address], 04/26/2024 13:03:06 04/26/20 24 04/26/2024 CBC MCH 29.6 pg 27.0-3 2.0 Not Available [facility] [address], [place], [address], 04/26/2024 13:03:06 04/26/20 24 04/26/2024 CBC MCHC 34.3 g/dL 32.0-3 6.0 Not Available [facility] [address] [facility] [address], [place], [address], 04/26/2024 13:03:06 04/26/20 24 04/26/2024 CBC RDW 14.2 % 11.5-1 4.5 Not Available [facility] [address] [facility], [place], [address], 04/26/2024 13:03:06 04/26/20 24 04/26/2024 CBC plt 191.2 x10 150.0- 451.0 Not Available [facility] [address] [facility], [place], [address], 04/26/2024 13:03:06 04/26/20 24 04/26/2024 CBC lymphocytes % 22.4 % 20.0-5 0.0 Not Available [facility] [address] [facility], [place], [address], 04/26/2024 13:03:06 04/26/20 24 04/26/2024 CBC granulcytes % 61.6 % 30.0-7 0.0 Not Available [facility] [address] [facility] 1, [place], [address], 04/26/2024 13:03:06 04/26/20 24 04/26/2024 CBC monocytes % 8.2 % 2.0-16 .0 Not Available [facility] [address] Reynoso [facility] 1, [place], [address], 04/26/2024 13:03:06 04/26/20 24 04/26/2024 CBC granulcytes# 4.5 x10 Not Jacque ilable [facility] [address] [facility] 1, [place], [address], 04/26/2024 13:03:06 04/26/20 24 04/26/2024 CBC lymphocytes # 1.6 x10 Not Available [facility] [address] [facility] 1, [place], [address], 04/26/2024 13:03:06 04/26/20 24 04/26/2024 CBC monocytes # 0.6 x10 Not Avai lable [facility] [address] [facility] 1, [place], [address], 04/26/2024 13:03:06 04/26/20 24 04/26/2024 TSH TSH 2.04 uIU/m L 0.49-3 .82 Not Available [facility] [address] [facility] 1, [place], [address], 04/26/2024 13:28:33 04/26/20 24 04/26/2024 LIPID PROFI LE (MALE ) cholesterol 199.0 mg/dL 0.0-20 0.0 Not Available [facility] [address] [facility] 1, [place], [address], 04/26/2024 13:34:30 04/26/20 24 04/26/2024 LIPID PROFI LE (MALE ) trig 164.0 mg/dL 0.0-15 0.0 high Not Available [facility] [address] [facility] 1, [place], [address], 04/26/2024 13:34:30 04/26/20 24 04/26/2024 LIPID PROFI LE (MALE ) HDL - direct 49.0 mg/dL >40.0 Not Available [facility] [address] [facility] 1, [place], [address], 04/26/2024 13:34:30 04/26/20 24 04/26/2024 LIPID PROFI LE (MALE ) VLDL - direct 32.8 mg/dL Not Available [facility] [address] [facility] 1, [place], [address], 04/26/2024 13:34:30 04/26/20 24 04/26/2024 LIPID PROFI LE (MALE ) LDL - direct 117.2 mg/dL 0.0-13 0.0 Not Available [facility] [address] [facility] 1, [place], [address], 04/26/2024 13:34:30 04/26/20 24 04/26/2024 CMP (MALE ) glucose 121.0 mg/dL 60.0-9 9.0 high Not Available [facility] [address] [facility] 1, [place], [address], 04/26/2024 13:34:32 04/26/20 24 04/26/2024 CMP (MALE ) BUN (blood urea nitrogen) 20.0 mg/dL 10.0-2 6.0 Not Available [facility] [address] [facility] 1, [place], [address], 04/26/2024 13:34:32 04/26/20 24 04/26/2024 CMP (MALE ) creatinine (serum) 1.2 mg/dL 0.4-1. 5 Not Available [facility] [address] [facility] 1, [place], [address], 04/26/2024 13:34:32 04/26/20 24 04/26/2024 CMP (MALE ) BUN/creatini ne ratio 16.67 ratio Not Available [facility] [address], [place], [address], 04/26/2024 13:34:32 04/26/20 24 04/26/2024 CMP (MALE ) eGFR calculated 64.0 Not Available [facility] [address] [facility] 1, [place], [address], 04/26/2024 13:34:32 04/26/20 24 04/26/2024 CMP (MALE ) total protein 7.9 g/dL 6.0-8. 5 Not Available [facility] [address] [facility] 1, [place], [address], 04/26/2024 13:34:32 04/26/20 24 04/26/2024 CMP (MALE ) total bilirubin 0.6 mg/dL 0.2-1. 3 Not Available [facility] [address] [facility] 1, [place], [address], 04/26/2024 13:34:32 04/26/20 24 04/26/2024 CMP (MALE ) albumin 4.6 g/dL 3.5-5. 5 Not Available [facility] [address] [facility] 1, [place], [address], 04/26/2024 13:34:32 04/26/20 24 04/26/2024 CMP (MALE ) globulin 3.3 calc Not Available [facility] [address] [facility] 1, [place], [address], 04/26/2024 13:34:32 04/26/20 24 04/26/2024 CMP (MALE ) AST (SGOT) 25.0 U/L 0.0-46 .0 Not Available [facility] [address] [facility] [address] [facility] 1, [place], [address], 04/26/2024 13:34:32 12/23/04/26/2024 CMP (MALE ) altv (SGPT) 32.0 U/L 13.0-6 9.0 normal Not Available [facility] [address] [facility] [address], [place], [address], 04/26/2024 13:34:32 04/26/20 24 04/26/2024 CMP (MALE ) A/G ratio 1.4 ratio Not Available [facility] [address] [facility], [place], [address], 04/26/2024 13:34:32 04/26/20 24 04/26/2024 CMP (MALE ) ALP phos 116.0 U/L 30.0-1 40.0 normal Not Available [facility] [address] [facility], [place], [address], 04/26/2024 13:34:32 04/26/20 24 04/26/2024 CMP (MALE ) calcium 9.0 mg/dL 8.4-10 .5 Not Available [facility] [address] [facility], [place], [address], 04/26/2024 13:34:32 04/26/20 24 04/26/2024 CMP (MALE ) sodium 140.0 mmol/ L 136.0- 145.0 Not Available [facility] [address] [facility], [place], [address], 04/26/2024 13:34:32 04/26/20 24 04/26/2024 CMP (MALE ) potassium 4.3 mmol/ L 3.5-5. 1 Not Available [facility] [address] [facility] 1, [place], [address], 04/26/2024 13:34:32 04/26/20 24 04/26/2024 CMP (MALE ) chloride 106.0 mmol/ L 98.0-1 10.0 normal Not Available [facility] [address], [place], [address], 04/26/2024 13:34:32 04/26/20 24 04/26/2024 CMP (MALE ) C02 27.0 mmol/ L 22.0-3 1.0 Not Available [facility] [address] [facility] [place], [address], 04/26/2024 13:34:32 04/26/20 24 04/26/2024 CMP (MALE ) anion gap 7.0 calc Not Available [facility] [address] [facility] 1, [place], [address], 04/26/2024 13:34:32 04/26/20 24 04/26/2024 CMP (MALE ) osmolality 292.7 calc Not Available [facility] [address] [facility] 1, [place], [address], 04/26/2024 13:34:32 04/26/20 24 04/26/2024 HBA1C hemaglobin A1C 6.3 4.2-6. 5 Not Available [facility] [address] [facility] 1, [place], [address], 04/26/2024 13:55:17 04/26/20 24 04/27/2024 PSA, TOTAL PSA, total 9.69 NG/mL < or = 4.00 high The total PSA value from this assay syste m is stand ardiz ed again st the WHO stand nicanor. The test resul t will be appro ximat cleo 20% lower when sanchez red to the equim olar- stand ardiz ed total PSA (Hdez man Coult er). Sanchez rison of seria l PSA resul ts shoul d be inter prete d with this fact in mind. This test was perfo rmed using the Sieme ns chemi lumin escen t metho d. Value s obtai arturo from diffe rent assay metho ds canno t be used inter leos eably . PSA level s, regar dless of value , shoul d not be inter prete d as absol [place] evide nce of the prese nce or absen ce of disemireya se. Not Available [facility] [address] [place], [address], 04/27/2024 05:13:16 Result Notes None recorded. Problems Name Problem SNOMED Code Status Onset Date Resolution Date Notes Provider Name and Address Organization Details Recorded Time Conductio n disorder of the heart 04005728 Active 2021 Cardiac dysrhythmi a; 04/17/2022 10:04AM by Christa Thomas RN, Office Visit; Promoted; acuity set as *; Not Available [facility] 3 03:12:50 Type 2 diabetes mellitus without complicat ion 948901059 Active 2021 TYPE 2 DIABETES, DIET CONTROLLED ; Recorded 04/17/2022 10:04AM by Christa Thomas RN, Office Visit; Promoted; acuity set as *; Not Available [facility] 3 03:12:50 Asthma 398293404 Active 2021 Asthma; 04/17/2022 10:04AM by Christa Thomas RN, Office Visit; Promoted; acuity set as *; Not Available [facility] 3 03:12:51 Dyslipide prasanna 417629070 Active 2021 Dyslipidem ia; 04/17/2022 10:04AM by Christa Thomas RN, Office Visit; Promoted; acuity set as *; Not Available [facility] 3 03:12:55 Tonsillec lilian Active 2021 Tonsillect dorcas; 04/17/2022 10:04AM by Christa Thomas RN, Office Visit; Promoted; acuity set as *; Not Available [facility] 3 03:12:55 Hypertens yina disorder 83008404 Active 2021 BENIGN ESSENTIAL HYPERTENSI ON; Recorded 04/17/2022 10:04AM by Christa Thomas RN, Office Visit; Promoted; acuity set as *; Not Available [facility] 3 03:12:57 Morbid obesity 324612993 [facility] 20[facility] 09:07:45 Demyelina ting disease of central nervous system 5335115 Active 2022 CHRISTA jaime, [facility] 3 09:07:45 Hyperlipi demia 78908181 Active 2022 [facility] 09:07:46 Essential hypertens ion 70624171 Active 2022 [facility] 09:07:48 Hyperglyc emia 85850630 Active 2022 Bebo Sharma, [address], [address] , [facility] 3 10:14:14 Problem Notes None recorded. Medical Equipment None Reported. Medications Name Sig Start Date Stop Date Status Note LastModified by Organization Details LastModified Time clindamyc in HCl 300 mg capsule TAKE 1 CAPSULE BY MOUTH THREE TIMES DAILY FOR 10 DAYS 10/07 completed Not Available Not Available Not Available azithromy sukumar 250 mg tablet TAKE 2 TABLETS BY MOUTH ON DAY 1, THEN TAKE 1 TABLET DAILY ON DAYS 2-5 04/07 completed Not Available Not Available Not Available prednison e 20 mg tablet TAKE ONE TABLET BY MOUTH TWICE DAILY FOR FIVE DAYS 10/07 completed Not Available Not Available Not Available sertralin e 25 mg tablet TAKE ONE TABLET BY MOUTH DAILY 2024 active Not Available Not Available Not Avai lable methylpre dnisolone 4 mg tablets in a dose pack TAKE DIRECTED ON PACKAGE active Not Available Not Available No t Available cefdinir 300 mg capsule TAKE ONE CAPSULE BY MOUTH THREE TIMES DAILY FOR 10 DAYS 04/07 completed Not Available Not Available Not Available losartan 100 mg tablet TAKE ONE TABLET BY MOUTH DAILY 2024 active Not Available Not Available Not Avai lable azithromy sukumar 500 mg tablet TAKE ONE TABLET BY MOUTH TODAY, THEN TAKE ONE-HALF TAB DAILY FOR FOUR DAYS. 10/07 completed Not Available Not Available Not Available ezetimibe 10 mg tablet TAKE ONE TABLET BY MOUTH DAILY 2024 active Not Available Not Available Not Avai lable Ed A-Hist DM 4 mg-10 mg-15 mg/5 mL oral liquid take 5mL BY MOUTH EVERY 6 HOURS NEEDED FOR COLD SYMPTOMS active Not Available Not Available No t Available aspirin qd active 0; Recorded 04/17/20 22 10:04AM by Veena Thomas RN, Office Visit; Not Available Not Available Not Available sildenafi l as needed 2018 active Recorded 04/17/20 22 10:04AM by Veena Thomas RN, Office Visit; Refill Quantity : 30; Tablet; Not Available Not Available Not Available Symbicort 160 mcg-4.5 mcg/actua tion HFA aerosol inhaler INHALE TWO PUFFS BY MOUTH TWICE DAILY FOR 30 DAYS active Not Available Not Available No t Available potassium citrate ER 15 mEq (1,620 mg) tablet,ex tended release TAKE ONE TABLET BY MOUTH THREE TIMES DAILY active Not Available Not Available No t Available Qvar RediHaler 40 mcg/actua tion HFA breath activated aerosol INHALE 1 PUFF BY MOUTH TWICE DAILY active Not Available Not Available No t Available losartan potassium (bulk) daily 04/07 completed 21359; Recorded 07/26/19 22 9:14AM by Veena Thomas RN (Authori nicolas through Bebo Sharma DO), Annotati on/Adden dum; Mail Order Quantity : 90 Tablet; Mail Order Days: 90 Days; Refill Quantity : 0; Not Available Not Available Not Available Vitals Date Recorded Body weight Respiratory rate Heart rate Oxygen saturation Oxygen saturation in Arterial blood by Pulse oximetry Systolic And Diastolic Provider Name and Address Organization Details Last Updated DateTime 3 186460. 31 g 20 /min 79 /min 98 % 98 % 148/82 mm[Hg] CHRISTA THOMAS [facility] 3 09:59:34 Date Recorded Body height Body mass index (BMI) Body weight Respiratory rate Heart rate Oxygen saturation Oxygen saturation in Arterial blood by Pulse oximetry Systolic And Diastolic Provider Name and Address Organization Details Last Updated DateTime 4 185.42 cm 34.4 kg/m2 673662. 61 g 18 /min 76 /min 98 % 98 % 142/76 mm[Hg] CHRISTA [facility] 4 09:08:46 Date Recorded Body height Body mass index (BMI) Body weight Respiratory rate Heart rate Oxygen saturation Oxygen saturation in Arterial blood by Pulse oximetry Systolic And Diastolic Provider Name and Address Organization Details Last Updated DateTime 3 185.42 cm 35.4 kg/m2 414791. 76 g 18 /min 84 /min 94 % 94 % 142/76 mm[Hg] CHRISTA [facility] 3 09:29:18 Date Recorded Body height Body mass index (BMI) Body weight Respiratory rate Heart rate Oxygen saturation Oxygen saturation in Arterial blood by Pulse oximetry Systolic And Diastolic Provider Name and Address Organization Details Last Updated DateTime 4 185.42 cm 37.2 kg/m2 400681. 05 g 20 /min 88 /min 98 % 98 % 142/64 mm[Hg] CHRISTA [facility] 4 12:13:50 Social History Question Answer Notes LastModified by [employer] Details LastModified Time Tobacco Smoking Status Never Smoker CHRISTADARY THOMAS [facility] 04/07/2023 09:30:51 Are You Blind Or Do You Have Difficulty Seeing? No Information not available 04/07/2023 Are You Deaf Or Do You Have Serious Difficulty Hearing? No [email or web address] Information not available 04/07/2023 Has Tobacco Cessation Counseling Been Provided? No Information not available 04/07/2023 Do You Have Difficulty Walking Or Climbing Stairs? No [email or web address] Information not available 04/07/2023 Sex: Unknown Functional Status Question Answer Note LastModified by [employer] Details LastModified Time Do you use any illicit or recreational drugs? No Information not available 04/07/2023 Do you or have you ever used any other forms of tobacco or nicotine? No [email or web address] Information not available 04/07/2023 Are you able to walk independently without assistance or assistive devices? YESWOREST [email or web address] Information not available 04/07/2023 Do you have difficulty doing errands alone? No [email or web address] Information not available 04/07/2023 Are you able to care for yourself independently? Yes Information not available 04/07/2023 Do you have difficulty dressing, bathing, grooming, or toileting? No [email or web address] Information not available 04/07/2023 Mental Status Question Answer Note LastModified by Organization D etails LastModified Time Do you have difficulty concentrating, remembering or making decisions? No [email or web address] Information no t available 04/07/2023 Family History Nothing Reported. Medical History No medical history recorded. Immunizations Vaccine Type Date Status Note Provider Nam e and Address Organization Details Recorded Time Influenza, split virus, trivalent, preservative 2 completed Not Available [facility] 11/30/2022 02:21:03 DTaP, unspecified formulation 8 completed Not Available [facility] 11/30/2022 02:21:06 Influenza, split virus, trivalent, preservative 9 completed Not Available [facility] 11/30/2022 02:21:07 Influenza, split virus, trivalent, preservative 5 completed Not Available [facility] 11/30/2022 02:21:07 Past Encounters Encounter ID Performer Location Encounter Start Date Encounter Closed Date Diagnosis/Indication Diagnosis SNOMED-CT Code Diagnosis ICD10 Code Diagnosis IMO Codes Diagnosis Note [id number] Bebo Sharma DO [facility] ([facility]) [address] [place] [phone] 10/07/2022 09:51:50 10/07/2022 15:21:21 Morbid obesity 884314000 E66.01 Hyperlipidemia 49805960 E78.5 Essential hypertension 63808173 I10 Hyperglycemia 42826126 R 73.9 [id number] Bebo Sharma DO [facility] ([facility]) [address] [place] [address] 04/07/2023 09:14:13 04/07/2023 11:19:02 Type 2 diabetes mellitus without complication 834044172 E11.9 [id number] Bebo DO Edith [facility] ([facility]) [address] [place] [address] 10/08/2023 08:48:29 10/08/2023 09:49:07 Demyelinating disease of central nervous system 2131366 G37.9 Hyperlipidemia 88296418 E78.5 Essential hypertension 52724543 I10 Hypertensive disorder 38 205219 I10 Type 2 sheila betes mellitus without complication 150501518 E11.9 [id number] Bebo Sharma DO [facility] ([facility]) [address] [place] [address] 10/06/2023 08:53:57 10/07/2023 10:24:24 Hyperglycemia 00827543 R73.9 [id number] Bebo DO Edith [facility] ([facility]) [address] [place] [address] 04/26/2024 12:01:02 04/26/2024 12:41:40 Type 2 diabetes mellitus without complication 035054813 E11.9 Hypertensive disorder 38 037050 I10 Screening for malignant neoplasm of prostate 736385996 Z12.5 Pain of le ft shoulder joint 7690191467 5702991 M25.512 Health Concerns Section Related Observation LastModified by Organization Detai ls LastModified Time None Recorded Concern Status LastModified by Organization Details LastModified Time None Recorded Advance Directives Directive None Recorded Payers Insurance Date Sequence Insurance Name Policy Number Policy Dickson Covered Member ID Dickson Member ID Guarantor Name 04/26/2024 [place] Asad Gore [id number] Asad Gore 04/26/2024 [place] - RHC-[id number] (MEDICARE) Asad Gore [id number] Asad Gore 04/26/2024 1 [facility] - MEDICARE-RAILR OAD [facility] BOARD (MEDICARE) Asad Gore [id number] 9 Asad Gore 04/26/2024 1 [place] Asad Gore [id number] 9 Asad Bethea Bao Notes Date Note Type Note Provider Name and Address Organization Details Recorded Time 10/07/2022 text/html Hypertension IM/FMReported by PatientHPIFor severity, patient reportsstage 2 (>140/>90 mmhg)but reportsmoderate. For quality, patient reportshere for check-up. For self care, patient reportsnon-smoker.R OS as noted in the [facility] Bebo Sharma [address], [address], [facility] 10/07/2022 10:19:43 04/07/2023 text/html Hypertension IM/FMReported by PatientHPIFor severity, patient reportsstage 2 (>140/>90 mmhg)but reportsmoderate. For quality, patient reportshere for check-up. For self care, patient reportsnon-smoker.R OS as noted in the [facility] Bebo Sharma [address], [address], [facility] 04/07/2023 09:48:53 10/08/2023 text/html Hypertension IM/FMReported by PatientHPIFor severity, patient reportsstage 2 (>140/>90 mmhg)but reportsmoderate. For quality, patient reportshere for check-up. For self care, patient reportsnon-smoker.R OS as noted in the [facility] Bebo Sharma [address], [address], [facility] 10/08/2023 09:42:38 04/26/2024 text/html Hypertension IM/FMReported by PatientIFor severity, patient reportsstage 2 (>140/>90 mmhg)but reportsmoderate. For quality, patient reportshere for check-up. For self care, patient reportsnon-smoker.R OS as noted in the [facility] Bebo Sharma [address], [address], [facility] 04/26/2024 12:40:18
--- NOTE | 2025-02-08 00:13 | W.ED.NEUROSD ---
HPI - Neuro Symptoms/Deficit General: Chief Complaint: Neuro Symptoms/Deficit Stated Complaint: stroke alert Time Seen by Provider: 02/07/25 23:58 History of Present Illness: 69-year-old male history of hypertension, hyperlipidemia, obesity, presenting to the emergency department with acute onset approximately 10:45 PM of left arm numbness without lashanda weakness, headache, mild dizziness, patchy area of vision loss to the left visual field, symptoms all resolved by the time EMS arrived, currently asymptomatic, no hx of similar sx previously, no diagnosed hx of stroke previously. no recent falls or trauma, in usoh prior to onset of symptoms. Related Data Home Medications ?Medication ?Instructions ?Recorded ?Confirmed aspirin 81 mg tablet,delayed 81 mg PO DAILY 06/21/19 10/25/24 release (Adult Aspirin Regimen) Previous Rx's ?Medication ?Instructions ?Recorded budesonide-formoterol HFA 160 See Rx Instructions .Route 10/07/24 mcg-4.5 mcg/actuation aerosol .COMPLEX #10.2 grams inhaler (Symbicort) ezetimibe 10 mg tablet 10 mg PO DAILY #90 tabs 10/07/24 losartan 100 mg tablet 100 mg PO DAILY #90 tabs 10/07/24 sertraline 25 mg tablet 25 mg PO DAILY #90 tabs 10/07/24 potassium citrate 10 mEq (1,080 See Rx Instructions .Route 10/25/24 mg) tablet,extended release .COMPLEX 90 days #180 tabs aspirin 325 mg tablet 325 mg PO DAILY 1 month #30 tabs 02/08/25 atorvastatin 20 mg tablet (Lipitor) 20 mg PO DAILY 1 month #30 tabs 02/08/25 Allergies Allergy/AdvReac Type Severity Reaction Status Date / Time No Known Allergies Allergy Verified 10/25/24 10:27 [facility] ED PFS: Medical History Hyperlipidemia Hypertension Asthma Uric acid urolithiasis S/P extracorporeal shock wave therapy Surgical History H/O amputation left hand digit 2 end S/P tonsillectomy Family History Mother Cancer Breast Father , AT AGE 89 Cancer LEUKEMIA Social History Smoking and tobacco/nicotine status: never used tobacco/nicotine Alcohol intake: never Substance/Drug Use: never Marital status: Current occupational status: retired NIH stroke score NIHSS: Level Of Consciousness - 1a: 0 Level Of Consciousness Questions - 1b: Both Correct Level Of Consciousness Commands - 1c: Both Correct Best Gaze - 2: Normal Visual Sibley - 3: No Visual Loss Facial Palsy - 4: Normal Motor Arm Right - 5: No Drift Motor Arm Left - 5: No Drift Motor Leg Right - 6: No Drift Motor Leg Left - 6: No Drift Limb Ataxia - 7: Absent Sensory - 8: Normal Best Language - 9: No Aphasia Dysarthia - 10: Normal Extinction And Inattention - 11: 0 Score: Total Score: 0 Physical Exam Narrative: EXAM NARRATIVE: Gen: A&Ox4, no acute distress, nontoxic appearing HEENT: Normocephalic, atraumatic, no scleral icterus, external ears normal, moist mucous membranes Neck: Supple, full range of motion, no observable masses Lungs: No Respiratory distress, Lungs clear to auscultation bilaterally no rales, rhonchi, wheezing CV: Regular rate and rhythm, no murmur, no pitting edema to lower extremities bilaterally Abdomen: Soft, nondistended, nontender to palpation MSK: No joint swelling, FROM all 4 extremities Skin: No rashes, petechiae, lesions. Normal color per patient. Neuro: Alert and oriented, no slurred speech, sensation and strength grossly intact all 4 extremities, see NIH stroke scale for that assessment, no dysmetria, speaking full sentences, no extinction or hemineglect, visual sibley intact, EOMI Psych: Appropriate for situation. Course Reevaluation(s): Reevaluation #1: Reevaluated patient at this time, he is still asymptomatic, repeat neurologic exam benign. His initial imaging shows no acute abnormalities from a CT perspective, however given his symptoms are concerning for TIA I did strongly recommend admission for stroke workup MRI and restratification. At this time he is unwilling to stay in the hospital, he reports that he takes care of her 94-year-old mother at home and there is nobody else who can take care of her, I did explain to him the risk to his health as well as the increased short-term probability of stroke that could have disastrous consequences. He did voiced understanding of this and has the capacity to refuse aspects of medical care. He is willing to undergo increase in his aspirin to full dose as well as initiation of a moderate intensity statin to add onto his Zetia to further reduce his risk, I do strongly recommend he return to the ER if he is willing to be evaluated for restratification, otherwise to follow-up with his PCP and an outpatient neurologist for outpatient testing. Patient will be discharged AGAINST MEDICAL ADVICE, he was advised of the incidental finding of thyroid nodules on his CT scan for his PCP to follow-up Time: 01:18 Consultations: Consultation #1: Spoke with radiology regarding noncontrast CT brain, negative for acute hemorrhage Time: 00:17 Vital Signs: Vital signs: Vital Signs Temperature 97.5 F L 02/07/25 23:54 Pulse Rate 72 02/08/25 00:51 Respiratory Rate 12 02/07/25 23:54 Blood Pressure 160/99 02/08/25 00:51 Pulse Oximetry 96 02/08/25 00:51 Oxygen Delivery Me thod Room Air 02/08/25 00:51 MDM - Neuro Symptoms/Deficit Medical Decision Making 69-year-old male history hypertension hyperlipidemia obesity presenting to emergency department with acute onset at 10:45 PM of left arm numbness and dizziness/headache with left visual field floater which has since resolved, currently with NIH of 0, no visual deficits that would necessitate emergent ophthalmologic evaluation, CT brain negative for acute hemorrhage, differential favors TIA, plan for EKG, angios, anticipate observation admission for MRI and stroke workup. Differential Diagnosis Likely subarachnoid hemorrhage, cerebrovascular accident and transient cerebral ischemia Lab Data No anemia or leukocytosis, creatinine borderline at 1.3, coags normal, electrolytes normal, urinalysis negative for UTI 02/08/25 00:18 02/08/25 00:[address] 02/07/25 23:59 IMPRESSION: No definite acute infarct ASSESSMENT: ASPECTS ([place] Stroke Program Early CT Score) is 10. ADDENDUM: 02/08/25 0016 COMMENT: THIS REPORT CONTAINS FINDINGS THAT MAY BE CRITICAL TO PATIENT CARE. The exam findings were verbally communicated by me to Emmanuel Cabrera via telephone conference at 12:15 AM CDT on 02/08/2025. The findings were acknowledged and understood. Head/Neck CTA 02/07/25 23:59 IMPRESSION: 1. Several nodules within the thyroid, consider nonurgent thyroid ultrasound for further characterization. 2. Short-segment moderate to high-grade stenosis of the mid right [place], though distal aspects appear to opacify symmetrically. Otherwise, no significant stenosis or occlusion. IMPRESSION: Several nodules within the thyroid, consider nonurgent thyroid ultrasound for further characterization. No definite acute stenosis or occlusion. COMMENTS: Consistent with the [employer]'s Incidental Findings Committee white paper (J Am Iris Radiol 2015): In patients aged 35 years and older with an incidental thyroid nodule equal to or greater than 1.[address], MRI or extrathyroidal US, further evaluation with dedicated thyroid US is recommended for patients with normal life expectancy and without comorbidities. For smaller nodules without suspicious features, no further evaluation or follow up is recommended. REFERENCES: NASCET CRITERIA. The degree of stenosis in the cervical segment of the internal carotid artery is based on NASCET criteria. Normal is no stenosis. Mild is less than 50% stenosis. Moderate is 50-69% stenosis. Severe is 70% to 99% stenosis. Total occlusion is no detectable patent lumen. Laboratory Results WBC 8.05 10^3/uL (3.29-11.43) 02/08/25 00:18 RBC 4.48 10^6/uL (3.85-5.65) 02/08/25 00:18 Hgb 12.70 g/dL (11.27-16.99) 02/08/25 00:18 Hct 39.6 % (37-53) 02/08/25 00:18 MCV 88.4 fl (82-101) 02/08/25 00:18 MCH 28.3 pg (27-33) 02/08/25 00:18 MCHC 32.1 g/dL (30-55) 02/08/25 00:18 RDW 13.3 % (12.1-15.1) 02/08/25 00:18 Plt Count 172 10^3/cmm (157-399) 02/08/25 00:18 MPV 10.0 fL (7.4-10.4) 02/08/25 00:18 Neut % (Auto) 72.6 % 02/08/25 00:18 Lymph % (Auto) 14.3 % 02/08/25 00:18 [place] % (Auto) 7.7 % 02/08/25 00:18 Eos % (Auto) 4.0 % 02/08/25 00:18 Baso % (Auto) 1.0 % 02/08/25 00:18 Neut # (Auto) 5.85 10^3/uL (1.8-7.7) 02/08/25 00:18 Lymph # (Auto) 1.2 10^3/uL (0.8-4.8) 02/08/25 00:18 [place] # (Auto) 0.6 10^3/uL (0.2-0.9) 02/08/25 00:18 Eos # (Auto) 0.3 10^3/uL (0.0-0.8) 02/08/25 00:18 Baso # (Auto) 0.1 10^3/uL (0.0-0.1) 02/08/25 00:18 Nucleated RBC % (auto) 0 % 02/08/25 00:18 Nucleated RBCs # 0.0 /100WBC 02/08/25 00:18 PT 12.80 SECONDS (12.1-14.9) 02/08/25 00:18 INR 0.90 (0.8-1.2) 02/08/25 00:18 APTT 27.3 SECONDS (23.9-36.7) 02/08/25 00:18 Sodium 136 mmol/L (136-145) 02/08/25 00:18 Potassium 4.3 mmol/L (3.5-5.1) 02/08/25 00:18 Chloride 101 mmol/L (98-107) 02/08/25 00:18 Carbon Dioxide 23 mmol/L (22-29) 02/08/25 00:18 Anion Gap 16.3 (5-19) 02/08/25 00:18 BUN 19 mg/dL (8-23) 02/08/25 00:18 Creatinine 1.3 mg/dL (0.7-1.2) H 02/08/25 00:18 GFR Calculation 54.7 mL/min (90-130) L 02/08/25 00:18 Glucose 137 mg/dL (65-115) H 02/08/25 00:18 Estimat Average Glucose 134 10/07/25 00:18 Hemoglobin A1c 6.3 % (4.0-6.0) H 02/08/25 00:18 Calculated Osmolality 286 mOsm/kg (285-295) 02/08/25:18 Calcium 8.3 mg/dL (8.5-10.5) L 02/08/25 00:18 Total Bilirubin 0.3 mg/dL (0.15-1.2) 02/08/25:18 AST 16 U/L (0-40) 02/08/25:18 ALT 19 U/L (0-41) 02/08/25:18 Alkaline Phosphatase 121 U/L (40-130) 02/08/25:18 Total Protein 5.9 g/dL (6.6-8.7) L 02/08/25:18 Albumin 3.5 g/dL (3.5-5.2) 02/08/25:18 Globulin 2.4 g/dL (1.3-4.6) 02/08/25 00:18 Triglycerides 187 mg/dL (0-150) H 02/08/25 00:18 Cholesterol 161 mg/dL (0-200) 02/08/25 00:18 LDL Cholesterol, Calc 89 mg/dL (50-129) 02/08/25 00:18 HDL Cholesterol 35 mg/dL (60-100) L 02/08/25 00:18 LDL/HDL Ratio 2.54 RATIO (0.00-3.22) 02/08/25 00:18 Cholesterol/HDL Ratio 4.60 mg/dL (1.0-5.00) 02/08/25 00:18 Urine Color Yellow (Yellow) 02/08/25:48 Urine Appearance Clear (CLEAR) 02/08/25 00:48 Urine pH 5.5 (5-7) 02/08/25:48 Ur Specific [place] 1.021 (1.005-1.030) 02/08/25:48 Urine Protein 1+ (Negative) A 02/08/25 00:48 Urine Glucose (UA) Negative (Normal) 02/08/25 00:48 Urine Ketones Negative (Negative) 02/08/25:48 Urine Blood Negative (Negative) 02/08/25 00:48 Urine Nitrate Negative (Negative) 02/08/25 00:48 Urine Bilirubin Negative (Negative) 02/08/25 00:48 Urine Urobilinogen 0.2 mg/dL (Negative) 02/08/25 00:48 Ur Leukocyte Esterase Negative (Negative) 02/08/25 00:48 Urine RBC None /hpf (0-2) 02/08/25 00:48 Urine WBC Rare /hpf (0-5) 02/08/25 00:48 Ur Squamous Epith Cells 0-4 /hpf (0-5) H 02/08/25 00:48 Amorphous Sediment Not Reportable 02/08/25 00:48 Urine Bacteria None /hpf (NONE) 02/08/25 00:48 Urine Sperm 1+ /hpf 02/08/25 00:48 Urine Opiates Screen Negative ng/mL (Negative) 02/08/25 00:48 Ur Barbiturates Screen Negative ng/mL (Negative) 02/08/25 00:48 Ur Phencyclidine Scrn Negative ng/mL (Negative) 02/08/25 00:48 Ur Amphetamines Screen Negative ng/mL (Negative) 02/08/25 00:48 U Benzodiazepines Scrn Negative ng/mL (Negative) 02/08/25 00:48 Urine Cocaine Screen Negative ng/mL (Negative) 02/08/25 00:48 U Marijuana (THC) Screen Negative ng/mL (Negative) 02/08/25 00:48 All radiology interpretation(s) finalized by discharge ED provider radiology interpretation(s): CT head and CT angios no acute bleed or large vessel occlusion, do incidentally show thyroid nodules that require outpatient evaluation EKG Data EKG 1: I personally reviewed and interpreted this EKG as follows: EKG interpretation date: 02/08/25 EKG interpretation time: 00:32 Interpretation: Sinus rhythm at 70 bpm with a first-degree AV block, no STEMI, no ectopy, QTc 395 ms, normal axis Discharge Plan Discharge Patient Disposition: Left Against Medical Advice Clinical Impression: Transient cerebral ischemia, Thyroid nodule, Hypertension Condition: Stable Prescriptions: New aspirin 325 mg tablet 325 mg PO DAILY 30 Days Qty: 30 0RF atorvastatin [Lipitor] 20 mg tablet 20 mg PO DAILY 30 Days Qty: 30 0RF No Action aspirin [Adult Aspirin Regimen] 81 mg tablet,delayed release (DR/EC) 81 mg PO DAILY budesonide-formoterol [Symbicort] 160-4.5 mcg/actuation HFA aerosol inhaler See Rx Instructions .ROUTE .COMPLEX Qty: 10.2 5RF Dose Instruction: INHALE TWO PUFFS BY MOUTH TWICE DAILY FOR 30 DAYS Rx Instructions: INHALE TWO PUFFS BY MOUTH TWICE DAILY FOR 30 DAYS sertraline 25 mg tablet 25 mg PO DAILY Qty: 90 1RF losartan 100 mg tablet 100 mg PO DAILY Qty: 90 1RF ezetimibe 10 mg tablet 10 mg PO DAILY Qty: 90 1RF potassium citrate 10 mEq (1,080 mg) tablet extended release See Rx Instructions .ROUTE .COMPLEX 90 Days Qty: 180 1RF Dose Instruction: TAKE ONE TABLET BY MOUTH THREE TIMES DAILY Rx Instructions: TAKE ONE TABLET BY MOUTH TWICE DAILY Referrals: Trini Dorantes FNP [Primary Care Provider, Family Practice] Print Language: Bengali Coding Level of Care Code ED Allergy Specialist for Josue Calvo
[2025-02-08] MEDS: iohexol 350 mg/mL 500 mL Btl (per mL) IV (00:20)
[2025-02-08 00:29] LABS: Hematocrit 39.6 % (37-53); Hemoglobin 12.70 g/dL (11.27-16.99); Mean Corpuscular HGB Conc 32.1 g/dL (30-55); Mean Corpuscular Hemoglobin 28.3 pg (27-33); Mean Corpuscular Volume 88.4 fl (82-101); Nucleated Red Blood Cells % 0 %; Platelet Count 172 10^3/cmm (157-399); Red Blood Count 4.48 10^6/uL (3.85-5.65); White Blood Count 8.05 10^3/uL (3.29-11.43)
[2025-02-08 00:31] VITALS: BP 204/99; PULSE 75; O2SAT 96
[2025-02-08 00:38] LABS: INR 0.90 (0.8-1.2); Prothrombin Time 12.80 SECONDS (12.1-14.9)
[2025-02-08 00:39] LABS: Partial Thromboplastin Time 27.3 SECONDS (23.9-36.7)
[2025-02-08 00:44] LABS: Alanine Aminotransferase 19 U/L (0-41); Albumin Level 3.5 g/dL (3.5-5.2); Alkaline Phosphatase 121 U/L (40-130); Blood Urea Nitrogen 19 mg/dL (8-23); Calcium 8.3 mg/dL (8.5-10.5); Carbon Dioxide 23 mmol/L (22-29); Chloride 101 mmol/L (98-107); Creatinine Clr Calc Pharmacy 73.1115; Globulin 2.4 g/dL (1.3-4.6); Glucose 137 mg/dL (65-115); Osmolality Calculated 286 mOsm/kg (285-295); Sodium 136 mmol/L (136-145); Total Protein 5.9 g/dL (6.6-8.7)
[2025-02-08 00:45] LABS: Anion Gap 16.3 (5-19); Potassium 4.3 mmol/L (3.5-5.1)
[2025-02-08 00:46] LABS: Aspartate Amino Transferase 16 U/L (0-40)
[2025-02-08] MEDS: LOSARTAN 100 MG TABLET PO (00:50)
[2025-02-08 00:51] VITALS: BP 160/99; PULSE 72; O2SAT 96
[2025-02-08 00:53] LABS: Glucose Urine UA Negative (Normal); Nitrate Urine Negative (Negative); Specific Gravity, Urine 1.021 (1.005-1.030)
[2025-02-08 01:00] LABS: PCP Screen Urine Negative (Negative)
[2025-02-08 01:02] LABS: Cholesterol 161 mg/dL (0-200); HDL Cholesterol 35 mg/dL (60-100); Triglycerides 187 mg/dL (0-150)
[2025-02-08 01:03] LABS: Estmated Average Glucose 134; Hemoglobin A1C 6.3 % (4.0-6.0)
[2025-02-08 01:05] LABS: UA Manual Slide Review YES; UA Slide Review UA Slide Review Perf
[2025-02-08 01:06] LABS: Add Urine Microscopic? YES
--- NOTE | 2025-02-09 07:56 | DCPLANNER ---
Message sent to Neurology for out patient follow up
== END 2025-02-08 01:46 | disposition left against medical advice (07) ==
PROVIDERS: Emergency Provider Student in an Organized Health Care Education/Training Program; PCP Nurse Practitioner Family
DX: G45.9 Transient cerebral ischemic attack, unspecified (principal); E04.1 Nontoxic single thyroid nodule; I10 Essential (primary) hypertension; E78.5 Hyperlipidemia, unspecified
CPT/HCPCS: 36415; 70450; 70496; 70498; 80053; 80061; 80306; 81001; 83036; 85025; 85610; 85730; 93005; 99285; J9999

== ENCOUNTER 2025-03-01 13:41 | Outpatient (CLI) | payer MEDICARE, SELFPAY ==
--- NOTE | 2025-03-01 15:00 | USR_ITS ---
PROCEDURE INFORMATION: Exam: US Soft Tissue Head and Neck, Thyroid Exam date and time: 03/01/2025 2:12 PM Age: 69 years old Clinical indication: Condition or disease; Thyroid disorder; Other: Nontoxic single thyroid nodule; Additional info: E04.1 - nontoxic single thyroid nodule TECHNIQUE: Imaging protocol: Real-time ultrasound scan of the neck with image documentation. Exam focused on the thyroid. COMPARISON: CT angio headneck* [id number] 02/08/2025 12:06 AM FINDINGS: Right thyroid lobe: The right lobe measures 4.3 x 1.6 x 1.9 cm. Right lobe echogenicity is normal. Right lobe nodule 1: Inferior, 1.6 x 1.3 x 2.5 cm, solid, hypoechoic, taller than wide, TR 5. Right lobe nodule 2: Inferior, 1.7 x 1.1 x 0.5 cm, solid, hypoechoic, wider than tall, rim calcifications, TR 4. Left thyroid lobe: The left lobe measures 1.9 x 2.2 x 4.3 cm. Left lobe echogenicity is normal. No left lobe nodules. Isthmus: The isthmus measures 3 mm. US/US thyroid [id number] IMPRESSION: TR 5 and TR 4 nodules in the right lobe of the thyroid which meet TI-RADS criteria for fine-needle aspiration.
== END 2025-03-01 13:42 | disposition home or self-care (01) ==
LOC: RAD 13:42
PROVIDERS: PCP Nurse Practitioner Family; Visit Provider Family Medicine
DX: E04.2 Nontoxic multinodular goiter (principal)
CPT/HCPCS: 76536